=== PATIENT | male | born 1965 | race Caucasian/White ===

== ENCOUNTER 2022-05-16 07:37 | Day surgery (SDC) | payer BC ==
[2022-05-11 15:01] VITALS: BMI 27.2
[2022-05-16] MEDS ORDERED: PROPOFOL 20 ML ONE ×2 (07:40)
[2022-05-16] MEDS ORDERED: LIDOCAINE HCL/PF 2% SDV 5ML VIAL ONE (07:58)
[2022-05-16 08:05] VITALS: RESP 18; TEMP 97.7
[2022-05-16 09:24] VITALS: BP 102/51; PULSE 78
== END 2022-05-16 09:20 | disposition home or self-care (01) ==
LOC: FASU-ENDO 07:37
PROVIDERS: ATTEND Internal Medicine Gastroenterology
PROC: 0DJD8ZZ Inspection of Lower Intestinal Tract, Via Natural or Artificial Opening Endoscopic (ICD-10-PCS; principal; 2022-05-16 08:12)
DX: Z12.11 Encounter for screening for malignant neoplasm of colon (principal); Z85.038 Personal history of other malignant neoplasm of large intestine; K56.699 Other intestinal obstruction unspecified as to partial versus complete obstruction
CPT/HCPCS: 82962